=== PATIENT | female | born 1980 | race Asian ===

== ENCOUNTER 2023-12-24 10:27 | Emergency (ER) | payer OTHER ==
[~2023-12-24] VITALS: Ht 162.6 cm; Wt 95.5 kg
[2023-12-24 10:53] VITALS: BP 118/75; PULSE 89
[2023-12-24 13:31] VITALS: RESP 18; O2SAT 100
[2023-12-24] MEDS: diphenhdrAMINE HCL 25 MG CAP PO ONE (13:55)
[2023-12-24] MEDS: DexAMETHasone SOD PHOS 10MG/1ML VIAL INJ PO ONE (13:55)
[2023-12-24 14:03] VITALS: RESP 20; O2SAT 99
[2023-12-24] MEDS: IPRATROPIUM BROM 0.5 MG/2.5ML INH SOL NEB ONE (14:03)
[2023-12-24] MEDS: ALBUTEROL SULF 2.5 MG/0.5ML(0.5%) NEB SOLN NEB ONE (14:03)
[2023-12-24] MEDS ORDERED: AZIT-43 PO (14:12)
[2023-12-24] MEDS ORDERED: ALBUAER3 IN (14:12)
[2023-12-24] MEDS ORDERED: BENZ100C97 PO (14:12)
[2023-12-26] MEDS ORDERED: CEPH500C PO (09:08)
[2023-12-26] MEDS ORDERED: PROM1SOL4 PO (09:31)
[2024-01-02] MEDS ORDERED: BENZ200C64 PO (09:12)
== END 2023-12-24 14:20 | disposition home or self-care (01) ==
LOC: ER 10:27
DX: J20.9 Acute bronchitis, unspecified (principal); Z88.6 Allergy status to analgesic agent
CPT/HCPCS: 71046; 94640; 99283; J1100; J7644

== ENCOUNTER 2023-12-29 12:46 | Emergency (ER) | payer OTHER ==
[~2023-12-29] VITALS: Ht 162.6 cm; Wt 96.5 kg
[~2023-12-29 12:46] MED LIST: ALBUAER3 IN; AZIT-43 PO; BENZ100C97 PO; CEPH500C PO; PROM1SOL4 PO
[2023-12-29 13:34] VITALS: BP 148/96; PULSE 93; RESP 18; O2SAT 98
[2023-12-29] MEDS ORDERED: MONT-8 PO (16:02)
[2023-12-29] MEDS ORDERED: CEPH500C PO (16:02)
[2024-01-02] MEDS ORDERED: BENZ200C64 PO (09:12)
== END 2023-12-29 17:10 | disposition home or self-care (01) ==
LOC: ER 12:46
DX: J20.9 Acute bronchitis, unspecified (principal)

== ENCOUNTER 2024-09-21 11:44 | Emergency (ER) | payer OTHER ==
[~2024-09-21] VITALS: Ht 165.1 cm; Wt 97.3 kg
[~2024-09-21 11:44] MED LIST changes: +BENZ200C64 PO; +MONT-8 PO
[2024-09-21 12:46] VITALS: BP 111/76; PULSE 62; RESP 20; TEMP 98.2; O2SAT 97
[2024-09-21 13:06] LABS: COVID19 ANTIGEN SOFIA FIA NEGATIVE (NEGATIVE)
[2024-09-21 13:07] LABS: Rapid Influenza A Positive (Negative); Rapid Influenza B Negative (Negative)
--- NOTE | 2024-09-21 13:30 | DVH ---
XY CHEST XRAY 1 VIEW, HISTORY: POSS FLU COMPARISON: None None TECHNICAL DATA: 1 view of the chest was obtained. FINDINGS: Lines and tubes: None Cardiomediastinal silhouette: normal Pulmonary vasculature: normal Lung expansion: normal Lung airspace: normal Lung interstitium: normal Pleura: normal Pneumothorax: no Bones: Unremarkable Other: no IMPRESSION: No acute intrathoracic abnormality.
[2024-09-21] MEDS ORDERED: OSEL75CA5 PO (14:37)
[2024-09-21] MEDS ORDERED: IBUP-1454 PO (14:37)
[2024-09-21] MEDS ORDERED: ACET500T58 PO (14:37)
[2024-09-21] MEDS ORDERED: AZIT-43 PO (14:37)
[2024-09-21] MEDS ORDERED: PROM1SOL4 PO (14:37)
--- NOTE | 2024-09-21 14:37 | ED.PDOC ---
History of Present Illness HPI Comments 44 year presents for URI symptoms C/o non productive cough Myalgia Denies fevers chills night sweats unintentional weight loss Denies persistent chest pain, shortness of breath, leg swelling Denies history of asthma nor any breathing conditions Denies history of pneumonia Denies recent international travel Chief Complaint: Flu like Time Seen by MD: 12:17 Reviewed Notes: Nurses Notes, Medications, Allergies Information Source: Patient Past Medical History PAST MEDICAL HISTORY: Anxiety Surgical History: Denies all surgeries PLANT QUALITY MANAGER History: No Pertinent PLANT QUALITY MANAGER History Family History Family History: Reviewed,noncontributory to illness Social History Smoker: Non-Smoker Alcohol: Denies ETOH Use Drugs: Denies Drug Use Lives In: Home All Other Systems: Reviewed and Negative (per hpi) Physical Exam General Appearance: No Apparent Distress, Normal HEENT: Normal ENT Inspection, Pharynx Normal, TMs Normal Neck: Full Range of Motion, Non-Tender, Normal, Normal Inspection Respiratory: Chest Non-Tender, Lungs Clear, No Accessory Muscle Use, No Respiratory Distress, Normal Breath Sounds Cardiovascular: No Edema, No JVD, No Murmur, No Gallop, Normal Peripheral Pulses, Regular Rate/Rhythm Breast Exam: Deferred Gastrointestinal: No Organomegaly, Non Tender, No Pulsatile Mass, Normal Bowel Sounds, Soft Genitalia: Deferred Pelvic: Deferred Rectal: Deferred Extremities: No calf tenderness, Normal capillary refill, Normal inspection, Normal range of motion, Non-tender, No pedal edema Musculoskeletal : Apperance: Normal Neurologic: Alert, computer equipment repairer II-XII nml as Tested, No Motor Deficits, Normal Affect, Normal Mood, No Sensory Deficits Cerebellar Function: Normal Reflexes: Normal Skin: Dry, Normal Color, Warm Lymphatic: No Adenopathy Was a procedure done? Was a procedure done?: No Fever Differential Dx Differential Diagnosis: Influenza, Viral Syndrome X-Ray, Labs, Meds, VS Vital Signs Date Time Temp Pulse Resp B/P (MAP) Pulse Ox O2 Delivery O2 Flow Rate FiO2 09/21/24 12:46 98.2 62 20 111/76 (88) 20 98.2 09/21/24 12:46 62 20 97 Room Air 09/21/24 12:00 98.2 62 20 111/76 (88) 97 Lab Test 09/21/24 12:18 Range/Units Influenza Type A Antigen Positive Negative Influenza Type B Antigen Negative Negative SARS-CoV-2 Antigen (Rapid) Negative NEGATIVE PATIENT: YANDEL TERRAZASACCT: [id number]: [id number] : 1980 LOC: ER ROOM / BED: / AGE / SEX: 44 / F ADM STATUS: REG ER SERVICE 1257 ORDERING PHYSICIAN: NAHED LEA NP PROCEDURE(s): CXR1 - CHEST XRAY 1 VIEW REASON: POSS FLU ORDER NUMBER(s): [id number], ACCESSION NUMBER(s): [id number] XY CHEST XRAY 1 VIEW, HISTORY: POSS FLU COMPARISON: None None TECHNICAL DATA: 1 view of the chest was obtained. FINDINGS: Lines and tubes: None Cardiomediastinal silhouette: normal Pulmonary vasculature: normal Lung expansion: normal Lung airspace: normal Lung interstitium: normal Pleura: normal Pneumothorax: no Bones: Unremarkable Other: no IMPRESSION: No acute intrathoracic abnormality. ATED BY: GALILEO LIU MD DICTATED DATE/TIME: 09/21/241326 SIGNED BY: GALILEO LIU MD SIGNED DATE/TIME: 09/21/241326 CC: X-Ray, Labs, Meds, VS Comment On presentation, the patient is afebrile and has stable vital signs. The patient is overall well-appearing nontoxic on exam. On physical exam, respirations even and unlabored, clear to auscultation bilaterally. Oxygen stable on room air. Viral testing done and results show influenza Chest x-ray independently read by myself Low suspicion of strep pharyngitis given physical exam findings and patient's presenting symptoms No signs of meningismus on exam Overall, the patient is well hydrated and nontoxic. Plan for symptomatic control for fever and pain as needed. The patient was able to tolerate p.o. intake in the ED. at this time, patient is safe for discharge home. The exam findings and plan discussed. We will discharge home with PCP follow up and strict return precautions. Empiric tx Discussed that cough can linger up to 6 weeks after viral URI Supportive care and return precautions discussed Counseled viral infection and explained that antibiotics would not be helpful in resolving the illness sooner. Recommended vitamin C, rest, handwashing, and symptomatic care. Expect 2-week course with possibly of cough lingering up to 6 weeks. Nonpharmacological remedies for fluids has been recommended as well Time of 1ST Reevaluation: 14:34 Reevaluation 1ST: Improved Patient Education/Counseling: Diagnosis, Treatment Family Education/Counseling: Diagnosis, Treatment Departure 1 Departure Time of Disposition: 14:34 Impression: Primary Impression: Influenza A Disposition: 01 HOME / SELF CARE / HOMELESS Condition: Fair Additional Instructions: Discharge Note: Drink plenty of fluids. Follow up with your primary Dr. If your condition becomes worse call and follow up with your primary Dr. for instructions or return to the ER if needed. Thank you for visiting [facility]. e-Prescriptions Azithromycin (Azithromycin) 250 Mg Tab 250 MG PO DAILY MDD 500 for 5 Days, #6 TAB 0 Refills 2 TABLETS ORALLY ON DAY ONE, THEN 1 TABLET ORALLY DAILY FOR 4 DAYS Prov: NAHED LEA NP 09/21/24 Promethazine-Dm (Promethazine Dm 6.25-15 mg/5Ml) 1 Marycarmen Marycarmen 5 ML PO TID for 10 Days, #150 ML 0 Refills Prov: NAHED LEA NP 09/21/24 Ibuprofen (Ibuprofen) 600 Mg Tab 1 TAB PO TID for 10 Days, #30 TAB 0 Refills Prov: NAHED LEA NP 09/21/24 Acetaminophen (Acetaminophen) 500 Mg Tab 500 MG PO Q4HP PRN for 10 Days, #50 TAB 0 Refills Prov: NAHED LEA NP 09/21/24 Oseltamivir Phosphate (Tamiflu) 75 Mg Cap 1 CAP PO BID for 5 Days, #10 CAP 0 Refills Prov: NAHED LEA NP 09/21/24 Critical Care Note Critical Care Time?: No Stability Stability form required: No Heart Score Heart Score: Heart Score Response (Comments) Value History N/A 0 EKG N/A 0 Age N/A 0 Risk Factors N/A 0 Troponin N/A 0 Total 0 NAHED LEA NP Sep 21, 2024 14:37
== END 2024-09-21 14:51 | disposition home or self-care (01) ==
LOC: ER 11:44
DX: J10.1 Influenza due to other identified influenza virus with other respiratory manifestations (principal); Z20.822 Contact with and (suspected) exposure to COVID-19
CPT/HCPCS: 36415; 71045; 87426; 87804

== ENCOUNTER 2024-09-30 11:59 | Emergency (ER) | payer OTHER ==
[~2024-09-30] VITALS: Ht 165.1 cm; Wt 95.9 kg
[~2024-09-30 11:59] MED LIST changes: +ACET500T58 PO; +IBUP-1454 PO; +OSEL75CA5 PO
[2024-09-30 13:18] VITALS: BP 117/86; PULSE 71; RESP 20; TEMP 97.2; O2SAT 97
[2024-09-30] MEDS ORDERED: AMOX875T3 PO (13:23)
--- NOTE | 2024-09-30 13:27 | ED.PDOC ---
SOB-HPI HPI Comments A 44 YEAR OLD FEMALE PRESENTS TO THE ED WITH COMPLAINT OF COUGH. PATIENT STATES SHE HAS BEEN EXPERIENCING A COUGH FOR THE LAST 10 DAYS. PATIENT REPORTS SHE CAME TO THIS ED 1 WEEK AGO FOR THIS COMPLAINT WHERE A CHEST X-RAY WAS DONE WHICH WAS NORMAL AND WAS PRESCRIBED AZITHROMYCIN 250 MG, BUT NOTES THERE HAS BEEN NO IMPROVEMENT HER SYMPTOMS. PATIENT DENIES FEVER, CHILLS, SHORTNESS OF BREATH, CHEST PAIN, ABDOMINAL PAIN, NAUSEA, VOMITING, HEADACHE, OR OTHER COMPLAINTS. NO OTHER SYMPTOMS OR MODIFYING FACTORS AT THIS TIME. PATIENT IS ALERT, ORIENTED X 4, AND HAS STEADY GAIT. Chief Complaint: Flu like Time Seen by MD: 13:06 Primary Care Provider: NONE Reviewed notes: Nurses Notes, Medications, Allergies Information Source: Patient Mode of Arrival: Ambulatory Severity: Moderate Timing: Days Duration: Since onset, Days Context: Spontaneous Onset PE Risk Factors: None History of: None Prehospital treatment: None Modifying Factors: Nothing Associated Signs and Symptoms: Cough, Nasal Congestion If cough with SOB: Productive Past Medical History PAST MEDICAL HISTORY: Anxiety Surgical History: Denies all surgeries GUN PROFILER History: No Pertinent GUN PROFILER History Family History Family History: Reviewed,noncontributory to illness Social History Smoker: Non-Smoker Alcohol: Denies ETOH Use Drugs: Denies Drug Use Lives In: Home Constitutional: denies: chills, diaphoresis, fatigue, fever, malaise, sweats, weakness, others EENTM: reports: nose congestion, throat pain, throat swelling; denies: blurred vision, double vision, ear bleeding, ear discharge, ear drainage, ear pain, ear ringing, eye pain, eye redness, hearing loss, mouth pain, mouth swelling, nasal discharge, nose bleeding, nose pain, photophobia, tearing, voice changes, others Respiratory: reports: cough; denies: hemoptysis, orthopnea, SOB at rest, s hortness of breath, SOB with excertion, stridor, wheezing, others Cardiovascular: denies: chest pain, dizzy spells, diaphoresis, Dyspnea on exertion, edema, irregular heart beat, left arm pain, lightheadedness, palpitations, PND, syncope, others Gastrointestinal: denies: abdomen distended, abdominal pain, blood streaked bowels, constipated, diarrhea, dysphagia, difficulty swallowing, hematemesis, melena, nausea, poor appetite, poor fluid intake, rectal bleeding, rectal pain, vomiting, others Genitourinary: denies: abnormal vagina bleeding, burning, dyspareunia, dysuria, flank pain, frequency, hematuria, incontinence, pain, , vagina discharge, urgency, others Neurological: denies: dizziness, fainting, headache, left sided numbness, left sided weakness, numbness, paresthesia, pre-existing deficit, right sided numbness, right sided weakness, seizure, speech problems, tingling, tremors, weakness, others Musculoskeletal: denies: back pain, gout, joint pain, joint swelling, muscle pain, muscle stiffness, neck pain, others Integumetry: denies: bruises, change in color, change in hair/nails, dryness, laceration, lesions, lumps, rash, wounds, others Allergic/Immunocompromised: denies: Difficulty Healing, Frequent Infections, Hives, Itching, others Hematologic/Lymphatic: denies: anemia, blood clots, easy bleeding, easy bruising, swollen glands, others Endocrine: denies: excessive hunger, excessive sweating, excessive thirst, excessive urination, flushing, intolerance to cold, intolerance to heat, unexplained weight gain, unexplained weight loss, others Psychiatric: denies: anxiety, bipolar disorder, depression, hopeless, panic disorder, schizophrenia, sleepless, suicidal, others All Other Systems: Reviewed and Negative Physical Exam General Appearance: No Apparent Distress, Normal HEENT: PERRL/EOMI, Pharynx Normal, TMs Normal Neck: Full Range of Motion, Non-Tender, Normal, Normal Inspection Respiratory: Chest Non-Tender, Expiration, Lungs Clear, No Accessory Muscle Use, No Respiratory Distress, Rhonchi Cardiovascular: No Edema, No JVD, No Murmur, No Gallop, Normal Peripheral Pulses, Regular Rate/Rhythm Breast Exam: Deferred Gastrointestinal: No Organomegaly, Non Tender, No Pulsatile Mass, Normal Bowel Sounds, Soft Genitalia: Deferred Pelvic: Deferred Rectal: Deferred Extremities: No calf tenderness, Normal capillary refill, Normal inspection, Normal range of motion, Non-tender, No pedal edema Musculoskeletal : Apperance: Normal Neurologic: Alert, professor of nursing II-XII nml as Tested, No Motor Deficits, Normal Affect, Normal Mood, No Sensory Deficits Cerebellar Function: Normal Reflexes: Normal Skin: Dry, Normal Color, Warm Peripheral Pulses: 2+ carotid (R), 2+ carotid (L) Lymphatic: No Adenopathy Was a procedure done? Was a procedure done?: No Differential Dx Differential Diagnosis: Bronchitis, Pneumonia, Sinusitis, Allergic Rhinitis, Otitis Media, Pharyngitis, URI X-Ray, Labs, Meds, VS Vital Signs Date Time Temp Pulse Resp B/P (MAP) Pulse Ox O2 Delivery O2 Flow Rate FiO2 09/30/24 13:18 97.2 71 20 117/86 (96) 97 97.2 09/30/24 13:18 71 20 97 Room Air 09/30/24 12:19 97.2 71 20 117/86 (96) 97 X-Ray, Labs, Meds, VS Comment EXTERNAL MEDICAL RECORDS REVIEWED: [NONE] INDEPENDENT HISTORIANS: [NONE] SOCIAL DETERMINANTS OF HEALTH: [NONE] LABS ORDERED: NONE REVIEWED AND INTERPRETED RESULTS: NONE IMAGING ORDERED: NONE TREATMENTS ORDERED: NONE PROCEDURES PERFORMED: NONE CRITICAL CARE TIME: NONE I HAVE DISCUSSED THE PATIENT WITH THE ATTENDING PHYSICIAN DR. BHAT AND HE AGREES WITH THE PATIENT'S PLAN OF CARE AND DISPOSITION. BASED ON HISTORY OF PRESENT ILLNESS, AND PHYSICAL EXAM, PATIENT WILL BE DISCHARGED HOME. SHARED DECISION MAKING: PATIENT INSTRUCTED TO FOLLOW UP WITH PRIMARY CARE PROVIDER IN 1-2 DAYS FOR RE-EVALUATION OF SYMPTOMS. PATIENT VERBALIZES UNDERSTANDING TO RETURN TO ED FOR NEW OR WORSENING SYMPTOMS OR IF FOLLOW UP WITH PCP CANNOT BE OBTAINED. PATIENT FEELS COMFORTABLE GOING HOME AT THIS TIME. ALL QUESTIONS ADDRESSED AT TIME OF DISCHARGE. Time of 1ST Reevaluation: 13:40 Reevaluation 1ST: Improved Patient Education/Counseling: Diagnosis, Treatment, Need For Follow Up Family Education/Counseling: Diagnosis, Treatment, Need For Follow Up Medical Screening: No EMC Exist At This Time Departure 1 Departure Time of Disposition: 13:40 Impression: Primary Impression: Acute bronchitis Qualified Codes: J20.9 - Acute bronchitis, unspecified Disposition: 01 HOME / SELF CARE / HOMELESS Condition: Stable Additional Instructions: FOLLOW-UP WITH PCP IN 1 TO 2 DAYS. TAKE MEDICATIONS PRESCRIBED. RETURN TO ED FOR ANY NEW OR WORSENING SYMPTOMS. e-Prescriptions Promethazine-Dm (Promethazine Dm 6.25-15 mg/5Ml) 1 Marycarmen Marycarmen 5 ML PO TID, #160 ML Prov: YVONNE CALIXTO 09/30/24 Amoxicillin Trihydrate (Amoxicillin) 875 Mg Tab 1 TAB PO BID, #20 TAB Prov: YVONNE CALIXTO 09/30/24 Discharged With: Self, Spouse Critical Care Note Critical Care Time?: No Stability Stability form required: No Heart Score Heart Score: Heart Score Response (Comments) Value History N/A 0 EKG N/A 0 Age N/A 0 Risk Factors N/A 0 Troponin N/A 0 Total 0 I personally scribed for YVONNE CALIXTO ([email or web address]) on 09/30/24 at 13:27. Electronically submitted by Cory Avila ([email or web address]). YVONNE CALIXTO Sep 30, 2024 13:27
== END 2024-09-30 13:32 | disposition home or self-care (01) ==
LOC: ER 12:11
DX: J20.9 Acute bronchitis, unspecified (principal); F41.9 Anxiety disorder, unspecified

== ENCOUNTER 2025-01-17 10:17 | Emergency (ER) | payer OTHER ==
[~2025-01-17] VITALS: Ht 165.1 cm; Wt 95.9 kg
[~2025-01-17 10:17] MED LIST changes: +AMOX875T3 PO
[2025-01-17 10:49] VITALS: BP 121/86; PULSE 88; RESP 20; TEMP 98.2; O2SAT 96
[2025-01-17] MEDS ORDERED: AMOX500T3 PO (11:15)
[2025-01-17] MEDS ORDERED: IBUP-1455 PO (11:15)
--- NOTE | 2025-01-17 11:15 | ED.PDOC ---
Eye-HPI HPI Comments 44-year-old female with a pertinent MHx presents with a chief complaint of a sore throat for the last five days. Unable to get adequate relief with [id number] Tylenol Motrin cough and cold medications. No sick contacts Denies chest pain shortness of breath Denies inability to move neck, history of meningitis Denies difficulty swallowing nor persistent salivation Denies fevers chills night sweats Denies persistent cough, runny nose, congestion Denies loss of appetite, unintentional weight loss over the past 3 months Denies voice changes Denies history of asthma or seasonal allergies Chief Complaint: Sore Throat Time Seen by MD: 10:48 Primary Care Provider: denies Reviewed Notes: Nurses Notes, Medications, Allergies Allergies: Coded Allergies: Prednisone (Verified Allergy, Intermediate, 12/24/23) Home Meds Active Scripts Promethazine-Dm (Promethazine Dm 6.25-15 mg/5Ml) 1 Marycarmen Marycarmen, 5 ML PO TID, #160 ML Prov:YVONNE CALIXTO 09/30/24 Amoxicillin Trihydrate (Amoxicillin) 875 Mg Tab, 1 TAB PO BID, #20 TAB Prov:YVONNE CALIXTO 09/30/24 Azithromycin (Azithromycin) 250 Mg Tab, 250 MG PO DAILY MDD 500 for 5 Days, #6 TAB 0 Refills 2 TABLETS ORALLY ON DAY ONE, THEN 1 TABLET ORALLY DAILY FOR 4 DAYS Prov:NAHED LEA NP 09/21/24 Promethazine-Dm (Promethazine Dm 6.25-15 mg/5Ml) 1 Marycarmen Marycarmen, 5 ML PO TID for 10 Days, #150 ML 0 Refills Prov:NAHED LEA NP 09/21/24 Ibuprofen (Ibuprofen) 600 Mg Tab, 1 TAB PO TID for 10 Days, #30 TAB 0 Refills Prov:NAHED LEA INSURANCE APPLICATION INVESTIGATOR 09/21/24 Acetaminophen (Acetaminophen) 500 Mg Tab, 500 MG PO Q4HP PRN for 10 Days, #50 TAB 0 Refills Prov:NAHED LEA NP 09/21/24 Oseltamivir Phosphate (Tamiflu) 75 Mg Cap, 1 CAP PO BID for 5 Days, #10 CAP 0 Refills Prov:NAHED LEA NP 09/21/24 Benzonatate (Benzonatate) 200 Mg Cap, 1 CAP PO TIDP, #30 CAP Prov:YVONNE CALIXTO 01/02/24 Montelukast Sodium (MONTELUKAST SODIUM) 10 Mg Tab, 1 TAB PO DAILY, #30 TAB 5 Refills Prov:SAMEER KOCHP 12/29/23 Cephalexin Monohydrate (Cephalexin) 500 Mg Cap, 1 CAP PO QID for 7 Days, #28 CAP Prov:SAMEER KOCH [facility] 12/29/23 Cephalexin Monohydrate (Cephalexin) 500 Mg Cap, 1 CAP PO QID, #28 CAP Prov:YVONNE CALIXTO 12/26/23 Promethazine-Dm (Promethazine Dm 6.25-15 mg/5Ml) 1 Marycarmen Marycarmen, 5 ML PO TID, #150 ML Prov:YVONNE CALIXTO 12/26/23 Benzonatate (Benzonatate) 100 Mg Cap, 1 CAP PO TID PRN, #30 CAP Prov:ALENA LUGO [facility] 12/24/23 Azithromycin (Azithromycin) 250 Mg Tab, 250 MG PO DAILY MDD 500 for 5 Days, #6 TAB 0 Refills 2 TABLETS ORALLY ON DAY ONE, THEN 1 TABLET ORALLY DAILY FOR 4 DAYS Prov:ALENA LUGO [facility] 12/24/23 Albuterol Sulfate (VENTOLIN MDI) 90 Mcg Ih, 90 MCG IN Q4HPRN PRN, #1 INH Prov:ALENA LUGO [facility] 12/24/23 Information Source: Patient Mode of Arrival: Ambulatory Past Medical History PAST MEDICAL HISTORY: Anxiety Surgical History: Denies all surgeries ASSURANCE MANAGER History: No Pertinent ASSURANCE MANAGER History Family History Family History: Reviewed,noncontributory to illness Social History Smoker: Non-Smoker Alcohol: Denies ETOH Use Drugs: Denies Drug Use Lives In: Home All Other Systems: Reviewed and Negative (per hpi) Physical Exam General Appearance: No Apparent Distress, Normal HEENT: Normal ENT Inspection, Pharyngeal Erythema (Tonsillar exudate. Uvula midline. Moist mucous membranes. No airway obstruction. No tripod position.), TMs Normal Neck: Full Range of Motion, Non-Tender, Normal, Normal Inspection Respiratory: Chest Non-Tender, Lungs Clear, No Accessory Muscle Use, No Respiratory Distress, Normal Breath Sounds Cardiovascular: No Edema, No JVD, No Murmur, No Gallop, Normal Peripheral Pulses, Regular Rate/Rhythm Breast Exam: Deferred Gastrointestinal: No Organomegaly, Non Tender, No Pulsatile Mass, Normal Bowel Sounds, Soft Genitalia: Deferred Pelvic: Deferred Rectal: Deferred Extremities: No calf tenderness, Normal capillary refill, Normal inspection, Normal range of motion, Non-tender, No pedal edema Musculoskeletal : Apperance: Normal Neurologic: Alert, technology services manager II-XII nml as Tested, No Motor Deficits, Normal Affect, Normal Mood, No Sensory Deficits Cerebellar Function: Normal Reflexes: Normal Skin: Dry, Normal Color, Warm Lymphatic: No Adenopathy Was a procedure done? Was a procedure done?: No EENT DIFF Eye: Other Sore Throat: Streptococcal, Viral Pharyngitis, URI X-Ray, Labs, Meds, VS Vital Signs Date Time Temp Pulse Resp B/P (MAP) Pulse Ox O2 Delivery O2 Flow Rate FiO2 01/17/25 10:49 88 20 96 Room Air 01/17/25 10:49 98.2 88 20 121/86 (98) 96 98.2 01/17/25 10:31 98.2 88 20 121/86 (98) 96 98.2 X-Ray, Labs, Meds, VS Comment On presentation, the patient is afebrile. The patient is overall well appearing, non-toxic on exam. After ROS and physical exam, The patient's symptoms are consistent with strep pharyngitis. The patient did not have any focal lung findings, and therefore chest x-ray was not indicated during this visit No signs of meningism on exam. Differentials considered but not limited to peritonsillar abscess, abscess formation, epiglottitis, retropharyngeal abscess formation or airway obstruction. Low concern for peritonsillar abscess as patient denies muffled or hot potato voice, and difficulty handling secretions. Low concerns for abscess formation as the soft palate is symmetrical and there is no displacement of the uvula and the uvula is also midline. Low concerns for epiglottitis as patient denies dysphagia, muffled voice, patient is not drooling nor is patient in tripod position. Low concerns for retropharyngeal abscess formation as patient has no fevers, stiff neck, drooling and does not have stridor. Low concerns for airway obstruction as patient denies sensation of foreign body vital signs stable on room air. The patient was able to tolerate p.o. intake in the ED. At this time, the patient is safe to discharge home. The exam findings and plan discussed. Will discharge home with PCP follow up and strict return precautions. Time of 1ST Reevaluation: 11:12 Reevaluation 1ST: Improved Patient Education/Counseling: Diagnosis, Treatment Family Education/Counseling: Diagnosis, Treatment Departure 1 Departure Time of Disposition: 11:13 Impression: Primary Impression: Tonsillar exudate Disposition: HOME / SELF CARE / HOMELESS Condition: Stable e-Prescriptions Ibuprofen Micronized (Ibuprofen) 800 Mg Tab 800 MG PO TIDWM for 7 Days, #21 TAB 0 Refills Prov: NAHED LEA NP 01/17/25 Amoxicillin Trihydrate (Amoxicillin) 500 Mg Tab 1 TAB PO BID for 10 Days, #20 TAB 0 Refills Prov: NAEHD LEA NP 01/17/25 Discharged With: Self Critical Care Note Critical Care Time?: No Stability Stability form required: No Heart Score Heart Score: Heart Score Response (Comments) Value History N/A 0 EKG N/A 0 Age N/A 0 Risk Factors N/A 0 Troponin N/A 0 Total 0 NAHED LEA NP Jan 17, 2025 11:15
== END 2025-01-17 11:20 | disposition home or self-care (01) ==
LOC: ER 10:17
DX: J03.90 Acute tonsillitis, unspecified (principal); F41.9 Anxiety disorder, unspecified; Z79.1 Long term (current) use of non-steroidal anti-inflammatories (NSAID); Z79.899 Other long term (current) drug therapy; Z88.8 Allergy status to other drugs, medicaments and biological substances

== ENCOUNTER 2025-01-19 14:08 | Emergency (ER) | payer OTHER ==
[~2025-01-19] VITALS: Ht 165.1 cm; Wt 99.6 kg
[~2025-01-19 14:08] MED LIST changes: +AMOX500T3 PO; +IBUP-1455 PO
[2025-01-19] MEDS ORDERED: DEXTLIQ4 OR (17:53)
--- NOTE | 2025-01-19 17:54 | ED.PDOC ---
Eye-HPI HPI Comments 44-YEAR-OLD FEMALE PRESENTED TO THE EMERGENCY DEPARTMENT COMPLAINING OF A SORE THROAT CONGESTION SINCE LAST WEEK SHE HAS BEEN TRYING THE URGENT CARE GIVEN MEDICATION STILL NOT FEELING WELL Chief Complaint: Sore Throat Time Seen by MD: 15:14 Primary Care Provider: NONE Reviewed Notes: Nurses Notes, Medications, Allergies Allergies: Coded Allergies: Prednisone (Verified Allergy, Intermediate, 12/24/23) Home Meds Active Scripts Ibuprofen Micronized (Ibuprofen) 800 Mg Tab, 800 MG PO TIDWM for 7 Days, #21 TAB 0 Refills Prov:NAHED LEA DUBBING MACHINE OPERATOR 01/17/25 Amoxicillin Trihydrate (Amoxicillin) 500 Mg Tab, 1 TAB PO BID for 10 Days, #20 TAB 0 Refills Prov:NAHED LEA NP 01/17/25 Promethazine-Dm (Promethazine Dm 6.25-15 mg/5Ml) 1 Marycarmen Marycarmen, 5 ML PO TID, #160 ML Prov:YVONNE CALIXTO 09/30/24 Amoxicillin Trihydrate (Amoxicillin) 875 Mg Tab, 1 TAB PO BID, #20 TAB Prov:YVONNE CALIXTO 09/30/24 Azithromycin (Azithromycin) 250 Mg Tab, 250 MG PO DAILY MDD 500 for 5 Days, #6 TAB 0 Refills 2 TABLETS ORALLY ON DAY ONE, THEN 1 TABLET ORALLY DAILY FOR 4 DAYS Prov:NAHED LEA DUBBING MACHINE OPERATOR 09/21/24 Promethazine-Dm (Promethazine Dm 6.25-15 mg/5Ml) 1 Marycarmen Marycarmen, 5 ML PO TID for 10 Days, #150 ML 0 Refills Prov:NAHED LEA NP 09/21/24 Ibuprofen (Ibuprofen) 600 Mg Tab, 1 TAB PO TID for 10 Days, #30 TAB 0 Refills Prov:NAHED LEA NP 09/21/24 Acetaminophen (Acetaminophen) 500 Mg Tab, 500 MG PO Q4HP PRN for 10 Days, #50 TAB 0 Refills Prov:NAHED LEA NP 09/21/24 Oseltamivir Phosphate (Tamiflu) 75 Mg Cap, 1 CAP PO BID for 5 Days, #10 CAP 0 Refills Prov:NAHED LEA NP 09/21/24 Benzonatate (Benzonatate) 200 Mg Cap, 1 CAP PO TIDP, #30 CAP Prov:YVONNE CALIXTO 01/02/24 Montelukast Sodium (MONTELUKAST SODIUM) 10 Mg Tab, 1 TAB PO DAILY, #30 TAB 5 Refills Prov:SAMEER KOCHP 12/29/23 Cephalexin Monohydrate (Cephalexin) 500 Mg Cap, 1 CAP PO QID for 7 Days, #28 CAP Prov:SAMEER KOCH [facility] 12/29/23 Cephalexin Monohydrate (Cephalexin) 500 Mg Cap, 1 CAP PO QID, #28 CAP Prov:YVONNE CALIXTO 12/26/23 Promethazine-Dm (Promethazine Dm 6.25-15 mg/5Ml) 1 Marycarmen Marycarmen, 5 ML PO TID, #150 ML Prov:YVONNE CALIXTO 12/26/23 Benzonatate (Benzonatate) 100 Mg Cap, 1 CAP PO TID PRN, #30 CAP Prov:ALENA LUGOP 12/24/23 Azithromycin (Azithromycin) 250 Mg Tab, 250 MG PO DAILY MDD 500 for 5 Days, #6 TAB 0 Refills 2 TABLETS ORALLY ON DAY ONE, THEN 1 TABLET ORALLY DAILY FOR 4 DAYS Prov:ALENA LUGO 12/24/23 Albuterol Sulfate (VENTOLIN MDI) 90 Mcg Ih, 90 MCG IN Q4HPRN PRN, #1 INH Prov:ALENA LUGO 12/24/23 Information Source: Patient Mode of Arrival: Ambulatory Timing: Days Duration: Since onset Lids: Normal Conjunctiva: Normal Cornea: Normal Pupils: Normal EOM: Normal Fundus: Normal Slit lamp exam: Normal Anterior chamber: Normal Mouth Location: Pharynx ENT Ear Exam: Normal Nose: Normal Sinuses: Normal Oropharynx: Red, Exudate Onset: Spontaneous Throat Exposed to: None Eye Context Recent: URI Symptoms, Antibiotic Use, Recurrent sore throat History of: None Last Tetanus: UTD Modifying factors: Nothing Associated signs and symptoms: None Past Medical History PAST MEDICAL HISTORY: Anxiety Surgical History: Denies all surgeries SALES EXPERT History: No Pertinent SALES EXPERT History Family History Family History: Reviewed,noncontributory to illness Social History Smoker: Non-Smoker Alcohol: Denies ETOH Use Drugs: Denies Drug Use Lives In: Home Constitutional: reports: chills, fatigue, fever EENTM: reports: nose congestion, throat pain, throat swelling Respiratory: reports: cough; denies: hemoptysis, orthopnea, SOB at rest, shortness of breath, SOB with excertion, stridor, wheezing, others Cardiovascular: denies: chest pain, dizzy spells, diaphoresis, Dyspnea on exertion, edema, irregular heart beat, left arm pain, lightheadedness, palpitations, PND, syncope, others Gastrointestinal: denies: abdomen distended, abdominal pain, blood streaked bowels, constipated, diarrhea, dysphagia, difficulty swallowing, hematemesis, melena, nausea, poor appetite, poor fluid intake, rectal bleeding, rectal pain, vomiting, others Genitourinary: denies: abnormal vagina bleeding, burning, dyspareunia, dysuria, flank pain, frequency, hematuria, incontinence, pain, , vagina discharge, urgency, others Neurological: denies: dizziness, fainting, headache, left sided numbness, left sided weakness, numbness, paresthesia, pre-existing deficit, right sided numbness, right sided weakness, seizure, speech problems, tingling, tremors, weakness, others Musculoskeletal: denies: back pain, gout, joint pain, joint swelling, muscle pain, muscle stiffness, neck pain, others Integumetry: denies: bruises, change in color, change in hair/nails, dryness, laceration, lesions, lumps, rash, wounds, others Allergic/Immunocompromised: denies: Difficulty Healing, Frequent Infections, Hives, Itching, others Hematologic/Lymphatic: denies: anemia, blood clots, easy bleeding, easy bruising, swollen glands, others Endocrine: denies: excessive hunger, excessive sweating, excessive thirst, excessive urination, flushing, intolerance to cold, intolerance to heat, unexplained weight gain, unexplained weight loss, others Psychiatric: denies: anxiety, bipolar disorder, depression, hopeless, panic disorder, schizophrenia, sleepless, suicidal, others All Other Systems: Reviewed and Negative Physical Exam General Appearance: Mild Distress, Normal HEENT: PERRL/EOMI, Pharyngeal Erythema, Tonsillar Exudate Neck: Lymphadenopathy (R), Lymphadenopathy (L) Respiratory: Chest Non-Tender, Lungs Clear, No Accessory Muscle Use, No Respiratory Distress, Normal Breath Sounds Cardiovascular: No Edema, No JVD, No Murmur, No Gallop, Normal Peripheral Pulses, Regular Rate/Rhythm Breast Exam: Deferred Gastrointestinal: No Organomegaly, Non Tender, No Pulsatile Mass, Normal Bowel Sounds, Soft Genitalia: Deferred Pelvic: Deferred Rectal: Black stool Extremities: No calf tenderness, Normal capillary refill, Normal inspection, Normal range of motion, Non-tender, No pedal edema Neurologic: Alert, sheet rock applicator II-XII nml as Tested, No Motor Deficits, Normal Affect, Normal Mood, No Sensory Deficits Cerebellar Function: Normal Reflexes: Normal Skin: Dry, Normal Color, Warm Peripheral Pulses: 1+ carotid (R) Lymphatic: No Adenopathy Was a procedure done? Was a procedure done?: No EENT DIFF Eye: Other Ear: N/A Nose: N/A Mouth: N/A Sore Throat: Peritonsillar Abscess, Peritonsillar Cellulitis, Pharyngitis, Viral Pharyngitis, URI X-Ray, Labs, Meds, VS Vital Signs Date Time Temp Pulse Resp B/P (MAP) Pulse Ox O2 Delivery O2 Flow Rate FiO2 01/19/25 14:28 98.1 78 18 144/81 (102) 96 98.1 Time of 1ST Reevaluation: 17:49 Reevaluation 1ST: Unchanged Consultation: PCP Patient Education/Counseling: Diagnosis, Treatment, Prognosis, Need For Follow Up Family Education/Counseling: Diagnosis, Treatment, Prognosis, Need For Follow Up, No Family Present Departure 1 Departure Time of Disposition: 17:50 Impression: Primary Impression: Acute bronchitis Qualified Codes: J20.9 - Acute bronchitis, unspecified Additional Impression: Acute tonsillitis Qualified Codes: J03.90 - Acute tonsillitis, unspecified Disposition: 01 HOME / SELF CARE / HOMELESS Condition: Fair Additional Instructions: PUSH FLUIDS GARGLE WITH SALT AND WATER AND FOLLOW UP WITH YOUR PCP e-Prescriptions Dextromethorphan-Acetaminophen (Triaminic Flu/Cough/Fever) Liq 2 TSP OR T.I.D. for 10 Days, #300 LIQ Prov: MARTINE MOCTEZUMA MD 01/19/25 Discharged With: Self Critical Care Note Critical Care Time?: No Stability Stability form required: No Heart Score Heart Score: Heart Score Response (Comments) Value History N/A 0 EKG N/A 0 Age <45 0 Risk Factors No known risk factors 0 Troponin N/A 0 Total 0 MARTINE MOCTEZUMA MD Jan 19, 2025 17:54
[2025-01-19 18:16] VITALS: BP 147/96; PULSE 95; RESP 20; TEMP 98; O2SAT 96
== END 2025-01-19 18:19 | disposition home or self-care (01) ==
LOC: ER 14:08
DX: J20.9 Acute bronchitis, unspecified (principal); J03.90 Acute tonsillitis, unspecified; F41.9 Anxiety disorder, unspecified; Z88.1 Allergy status to other antibiotic agents; Z79.899 Other long term (current) drug therapy

== ENCOUNTER 2025-09-05 11:21 | Emergency (ER) | payer OTHER ==
[~2025-09-05] VITALS: Ht 165.1 cm; Wt 98.9 kg
[~2025-09-05 11:21] MED LIST changes: +DEXTLIQ4 OR
[2025-09-05] MEDS ORDERED: AUG875T PO (12:13)
--- NOTE | 2025-09-05 12:21 | ED.PDOC ---
SOB-HPI HPI Comments The patient presented with symptoms suggestive of acute bronchitis, seeking treatment for respiratory complaints. The patient reported experiencing symptoms beginning five days prior, including a mild fever, cough with yellow mucus production, and a heavy feeling in the chest. The patient also noted ongoing cough and intermittent fever. There was no history of asthma, pneumonia, or smoking. The patient did not report having any recent illnesses, travel, or exposure to sick individuals. The patient had received the flu and COVID vaccinations this year. The patient expressed concern due to a history of similar episodes and requested antibiotics due to the similarity of symptoms to previous bronchitis or pneumonia episodes. The patient did not report coughing up blood or using any medication regularly except for occasional Tylenol. Denies fevers chills night sweats unintentional weight loss Denies persistent chest pain, shortness of breath, leg swelling Denies history of asthma nor any breathing conditions Denies history of pneumonia Denies recent international travel Chief Complaint: Flu like Time Seen by MD: 12:15 Primary Care Provider: NONE Reviewed notes: Nurses Notes, Medications, Allergies Information Source: Patient Mode of Arrival: Ambulatory Severity: Moderate Timing: Days Duration: Since onset, Days Context: Spontaneous Onset PE Risk Factors: None History of: None Prehospital treatment: None Associated Signs and Symptoms: Fever, Cough Quality: Heavy Radiation: No Radiation Location: Substernal If cough with SOB: Green Past Medical History PAST MEDICAL HISTORY: Anxiety Surgical History: Denies all surgeries RIVETER History: No Pertinent RIVETER History Family History Family History: Reviewed,noncontributory to illness, Unknown Social History Smoker: Non-Smoker Alcohol: Denies ETOH Use Drugs: Denies Drug Use Lives In: Home Constitutional: reports: fever; denies: chills, diaphoresis, fatigue, malaise, sweats, weakness, others EENTM: denies: blurred vision, double vision, ear bleeding, ear discharge, ear drainage, ear pain, ear ringing, eye pain, eye redness, hearing loss, mouth pain, mouth swelling, nasal discharge, nose bleeding, nose congestion, nose pain, photophobia, tearing, throat pain, throat swelling, voice changes, others Respiratory: reports: cough; denies: hemoptysis, orthopnea, SOB at rest, shortness of breath, SOB with excertion, stridor, wheezing, others Cardiovascular: denies: chest pain, dizzy spells, diaphoresis, Dyspnea on exertion, edema, irregular heart beat, left arm pain, lightheadedness, palpitations, PND, syncope, others Gastrointestinal: denies: abdomen distended, abdominal pain, blood streaked bowels, constipated, diarrhea, dysphagia, difficulty swallowing, hematemesis, melena, nausea, poor appetite, poor fluid intake, rectal bleeding, rectal pain, vomiting, others Genitourinary: denies: abnormal vagina bleeding, burning, dyspareunia, dysuria, flank pain, frequency, hematuria, incontinence, pain, , vagina discharge, urgency, others Neurological: denies: dizziness, fainting, headache, left sided numbness, left sided weakness, numbness, paresthesia, pre-existing deficit, right sided numbness, right sided weakness, seizure, speech problems, tingling, tremors, weakness, others Musculoskeletal: denies: back pain, gout, joint pain, joint swelling, muscle p ain, muscle stiffness, neck pain, others Integumetry: denies: bruises, change in color, change in hair/nails, dryness, laceration, lesions, lumps, rash, wounds, others Allergic/Immunocompromised: denies: Difficulty Healing, Frequent Infections, Hives, Itching, others Hematologic/Lymphatic: denies: anemia, blood clots, easy bleeding, easy bruising, swollen glands, others Endocrine: denies: excessive hunger, excessive sweating, excessive thirst, excessive urination, flushing, intolerance to cold, intolerance to heat, unexplained weight gain, unexplained weight loss, others Psychiatric: denies: anxiety, bipolar disorder, depression, hopeless, panic disorder, schizophrenia, sleepless, suicidal, others All Other Systems: Reviewed and Negative Physical Exam Exam Comments Nostrils are clear, no wheezing, moist mucous membranes mmm, uvula midline General Appearance: No Apparent Distress, Normal HEENT: Normal ENT Inspection, Pharynx Normal, TMs Normal Neck: Full Range of Motion, Non-Tender, Normal, Normal Inspection Respiratory: Chest Non-Tender, Lungs Clear, No Accessory Muscle Use, No Respiratory Distress, Normal Breath Sounds Cardiovascular: No Edema, No JVD, No Murmur, No Gallop, Normal Peripheral Pulses, Regular Rate/Rhythm Breast Exam: Deferred Gastrointestinal: No Organomegaly, Non Tender, No Pulsatile Mass, Normal Bowel Sounds, Soft Genitalia: Deferred Pelvic: Deferred Rectal: Deferred Extremities: No calf tenderness, Normal capillary refill, Normal inspection, Normal range of motion, Non-tender, No pedal edema Musculoskeletal : Apperance: Normal Neurologic: Alert, clinical informatics manager II-XII nml as Tested, No Motor Deficits, Normal Affect, Normal Mood, No Sensory Deficits Cerebellar Function: Normal Reflexes: Normal Skin: Dry, Normal Color, Warm Lymphatic: No Adenopathy Was a procedure done? Was a procedure done?: No Differential Dx Differential Diagnosis: URI X-Ray, Labs, Meds, VS Vital Signs Date Time Temp Pulse Resp B/P (MAP) Pulse Ox O2 Delivery O2 Flow Rate FiO2 09/05/25 12:37 97.7 64 16 138/72 (94) 98 97.7 09/05/25 12:37 64 17 97 Room Air 09/05/25 11:24 97.7 95 17 127/78 97 97.7 09/05/25 11:24 Room Air* 0 21 X-Ray, Labs, Meds, VS Comment Patient arrives alert and oriented, ABC's intact, afebrile, vital signs stable, saturating well in room air The patient's symptoms were indicative of a respiratory infection, most likely acute bronchitis or possible pneumonia, given the history of similar symptoms and the presence of productive cough with yellow mucus. The decision to prescribe antibiotics, specifically Augmentin, was based on the patient's history and symptomatology. - Prescribed Augmentin 875 mg. - Advised taking the medication with food to prevent stomach upset. - Recommended cough medicine as needed. - Advised to drink plenty of warm fluids, possibly with tea. - Suggested using chest rubs and lozenges for symptomatic relief. Follow-Up: - Instructed to return if symptoms do not improve or worsen. Disposition: - The patient was advised on medication use and symptomatic relief measures and was scheduled for discharge. Additional MDM Review of External, Non-ED records: External records reviewed. Discussion with independent historian (EMS, family) history obtained from the patient/parents (if applicable) at bedside Chronic conditions affecting care: None Social determinants of health affecting care: None Consideration of admission (observation or admission): I considered escalation of care to admission for this patient, however given the reassuring workup, the patient is safe for outpatient management. Time of 1ST Reevaluation: 12:45 Reevaluation 1ST: Unchanged Patient Education/Counseling: Diagnosis, Treatment, Prognosis Family Education/Counseling: No Family Present SEPSIS Sepsis Screen Date sepsis recognized/suspect: Sep 05, 2025 Time Sepsis recognized/suspect: 1125 Recent Procedure: No On Antibiotic Therapy: No Respiratory Rate >20: No Heart Rate >90: No Temp<36 C (96.8 F) or >38.3 C: No SBP <90 or MAP <65 mmHG: No New Acute Mental Status Change: No Is the patient on CPAP, BIPAP,: No Vital Signs Date Time Temp Pulse Resp B/P (MAP) Pulse Ox O2 Delivery O2 Flow Rate FiO2 09/05/25 12:37 97.7 64 16 138/72 (94) 98 97.7 09/05/25 12:37 64 17 97 Room Air 09/05/25 11:24 97.7 95 17 127/78 97 97.7 09/05/25 11:24 Room Air* 0 21 Departure 1 Departure Time of Disposition: 12:46 Impression: Primary Impression: Viral syndrome Disposition: 01 HOME / SELF CARE / HOMELESS Condition: Stable e-Prescriptions Amoxicillin & Pot Clavulanate (AUGMENTIN TABLET) 875 Mg Tb 875 MG PO BID for 5 Days, #10 TAB 0 Refills Prov: NAHED LEA NP 09/05/25 Promethazine-Dm (Promethazine Dm 6.25-15 mg/5Ml) 1 Marycarmen Marycarmen 5 ML PO TID, #160 ML Prov: NAHED LEA NP 09/05/25 Discharged With: Self Critical Care Note Critical Care Time?: No Stability Stability form required: No Heart Score Heart Score: Heart Score Response (Comments) Value History N/A 0 EKG N/A 0 Age N/A 0 Risk Factors N/A 0 Troponin N/A 0 Total 0 I personally scribed for NAHED LEA NP ([email or web address]) on 09/05/25 at 12:21. Electronically submitted by Foster Delatorre ([email or web address]). NAHED LEA NP Sep 05, 2025 12:21
[2025-09-05 12:37] VITALS: BP 138/72; PULSE 64; RESP 17; TEMP 97.7; O2SAT 97
== END 2025-09-05 12:40 | disposition home or self-care (01) ==
LOC: ER 11:21
DX: B34.9 Viral infection, unspecified (principal); F41.9 Anxiety disorder, unspecified